=== PATIENT | female | born 1990 | race Caucasian/White ===

== ENCOUNTER → 2016-10-16 | Outpatient (CLI) | payer MEDICAID ==
[~2016-10-16] MED LIST: AMOXICOT500 MG PO; ETODOLAC400 MG PO; IRON TABLETS325 MG PO; MACROBID 100MG100 MG PO; NIFEDIPINE XL 330 MG PO; NOMEDS XX; PRENATAL PLUS1 TA1 PO; SEPTRA DS 800 M1 TAB PO; TUMS 400MG TAB400 MG PO
--- NOTE | 2016-10-17 16:30 | RADIOLOGY REPORT PS360 ---
US TRANSVAGINAL PREG ORDERING PHYSICIAN : Miller Jain MD PATIENT AGE: 26 years GENDER: Female INDICATION: DATES 8 weeks early OB to evaluate for date/age TECHNIQUE: Transvaginal pelvic ultrasound COMPARISON: No relevant studies FINDINGS There is a single viable uterine gestation Long closed cervix measuring nearly 6 cm length Average ultrasound age 7 weeks 0 days with today's information. Gestational age 8 weeks 2 days based on LMP 08/19/2016. Mean sac size is 2.02 cm = 6 weeks 4 days. [place]-rump length equal 1.11 cm = 7 weeks 2 days. Yolk sac measures 0.49 cm. Heart rate 153 BPM.. Amnionic chorion are identified. Cardiac activity identified. Small follicles throughout right and left ovary Right ovary 4.1 cm length x 1.6 cm x 2.2 cm. Left ovary 3.5 cm length on my measurement X x 2.1 cm x 1.8 cm. . The largest cyst is seen at the left ovary posteriorly measuring up to 1.4 cm.. Nonspecific. No fluid in cul-de-sac. ...... IMPRESSION: Single viable early intrauterine gestation. 7 weeks 0 days Average Ultrasound Age With CRL = 7 weeks 2 days
== END ==
LOC: RAD 14:58
DX: O26.841 Uterine size-date discrepancy, first trimester (principal)

== ENCOUNTER 2017-05-21 19:42 | Inpatient (IN) | payer MEDICAID ==
[~2017-05-21] VITALS: Ht 162.6 cm; Wt 64.0 kg
[~2017-05-21 19:42] MED LIST changes: +FLINTSTONES1 EACH PO
[2017-05-21 21:23] VITALS: BP 126/69
[2017-05-21 22:31] LABS: LYMPH # 1.7 K/mm3 (0.7-4.5); LYMPH % 20.2 % (10-50.0)
[2017-05-21 22:33] LABS: HEMOGLOBIN 10.4 g/dL (12.2-16.2)
[2017-05-22 03:32] LABS: ABO BLOOD TYPE A; RH BLOOD TYPE POSITIVE
--- NOTE | 2017-05-22 07:59 | LABOR NOTE ---
Laboring Subjective Subjective Date 05/22/17 Time 0757 Subjective: Pt is having regular contractions Laboring Objective Objective NST: Reactive Contractions: q 4-5 minutes Cervical dilation: 5-6 Effacement: 75% Station: -2 Membranes are: Artificially ruptured (with clear fluid) Fetus monitoring? Yes Type: External Laboring Assessment Assessment Progressing? Yes Cephalopelvic disproportion? No Problem List: 1. Normal delivery at term Laboring Plan Plan Anethesia for epidural? Yes Continue to labor down? Yes Plan for ? No Continue to monitor? Yes Start pushing? No at 0758
[2017-05-22 08:22] VITALS: BP 123/64
[2017-05-22 08:29] LABS: URINE BILIRUBIN - DIPSTICK NEGATIVE (NEG); URINE BLOOD TRACE-LYSED (NEG)
[2017-05-22 08:37] LABS: URINE SQUAMOUS CELLS OCC #/hpf (0-5)
--- NOTE | 2017-05-22 10:13 | LABOR NOTE ---
Laboring Subjective Subjective Date 05/22/17 Time 1012 Subjective: Pt is having regular contractions Laboring Objective Objective NST: Reactive Contractions: q 2-3 minutes Cervical dilation: 9 (ant lip) Effacement: 100% Station: +2 Membranes are: Artificially ruptured Fetus monitoring? Yes Type: External Laboring Assessment Assessment Progressing? Yes Cephalopelvic disproportion? No Problem List: 1. Normal delivery at term Laboring Plan Plan Anethesia for epidural? Yes Continue to labor down? Yes Plan for ? No Continue to monitor? Yes Start pushing? Yes at 1013
--- NOTE | 2017-05-22 10:38 | Delivery Note ---
Delivery note Delivery date: 05/22/17 Delivery time: 1025 Anesthesia: Epidural, Kit Billingsley Was labor medically induced? No Gestational age in weeks: 38 weeks Days: 1 day Delivery prior to 39 weeks? Yes Justification for delivery: Active labor Sex: female score at one minute: 8 at 5 minutes: 9 Type of suction: bulb AF: Clear fluid LAC or MLE: LAC (none) Delivery procedure: Normal Delivery Delivery of placenta: manual Clinical note She is a 26-year-old 7 now para 5 aborta 2 who was 38 weeks gestational age. She arrived in the evening of May 21, 2017 having regular contractions. She change her cervix from 2-5 cm. She was observed overnight and progressed to 5-6 cm. As result of that she had her membranes ruptured. Under labor epidural she progressed to full dilation and delivered spontaneously a liveborn female child at 10:25 AM on the morning of May 22, 2017. Undelivered the head the anterior shoulder rapidly delivered followed by the rest of the infant's body atraumatically. The baby cried spontaneously. The oropharynx and nasal fracture bulb suction. We allowed the cord to continue pulsating for approximately 45 seconds and then doubly clamped cord. The baby was then placed on the mother's abdomen for further care. Nurses assigned Apgars of 8 at 1 minute and 9 at 5 minutes. Using gentle traction on the cord the placenta did not want to release itself so using my hand I was able to completely deliver the placenta intact. It had a normal three-vessel cord. There were no perineal or vaginal lacerations. She has a positive blood, she is rubella immune and was group B streptococcus negative. She plans to breast-feed. Her marketing assistant manager Dr. Toscano. Estimated blood loss was 400 mL. at 1038
[2017-05-22 20:36] VITALS: BP 118/77
[2017-05-23 06:57] LABS: HEMOGLOBIN 8.6 g/dL (12.2-16.2)
[2017-05-23] MEDS ORDERED: MOTRIN 400MG.400 MG PO (08:37)
[2017-05-23 08:48] VITALS: BP 122/81
--- NOTE | 2017-05-23 10:18 | ACUTE CARE PROGRESS NOTE (QUA) ---
Progress Notes Subjective Date 05/23/17 Time 1017 Note She is doing very well this morning. She would like to go home. She is eating and drinking and ambulating. She is breast-feeding. Her lochia is normal. Patient/family reports: feeling better, no complaints Objective Findings Last VS-Temp:97.6 B/P:122/81 Pulse:60 Resp:18 SaO2: Last weight lbs:141 oz:0 [id number].957 Method:Floor Scales Laboratory Tests 05/23/17 0615: Hgb 8.6 L, Hct 25.9 L Exam General appearance: normal appearance, alert, awake, no acute distress Reviewed: vital signs, lab results Assessment/Plan Problem List 1. Normal delivery at term Patient condition Improving, Stable Plan: continue current care, initiate discharge plan This inpt stay is expected to cross 2 MNs from start of care No Comments: She is doing very well and she would like to go home. We will plan to discharge her home today. at 1018
--- NOTE | 2017-05-23 10:21 | Discharge Summary ---
Discharge Summary Admission date: 05/21/17 Discharge date: 05/23/17 Discharge diagnoses: Term , maternal anemia, spontaneous vaginal delivery Clinical note: She is a 26-year-old 7 now para 5 aborta 2 who is 38 weeks gestational age. She came in having a few contractions and was found to be 2 cm dilated. She was observed for couple of hours and progressed to 5 cm. As result of that we admitted her for delivery. Course in hospital: She was observed overnight and change from 2-6 cm. She will had her membranes ruptured and progressed to full dilation. She delivered spontaneously a liveborn female child at 10:25 AM on the morning of May 22, 2017. The baby weighed 6 lbs. 6 oz. was 19 inches long and had Apgars of 8 at 1 minute and 9 at 5 minutes. She has done well and has remained afebrile throughout her hospitalization. She is eating and drinking and ambulating. She is breast- feeding. She has a positive blood, she is rubella immune and was group B streptococcus negative. She is anemic and will take iron and vitamins. Laboratory Tests 05/23/17 0615: Hgb 8.6 L, Hct 25.9 L 05/22/17 1015: Cord Blood pH 7.31 L 05/22/17 0745: Urine Color YELLOW, Urine Appearance SL CLOUDY, Urine pH 7.0, Ur Specific [place] 1.015, Urine Protein NEGATIVE, Urine Ketones NEGATIVE, Urine Blood TRACE -LYSED, Urine Nitrate NEGATIVE, Urine Bilirubin NEGATIVE, Urine Urobilinogen 1.0 , Ur Leukocyte Esterase NEGATIVE, Urine RBC OCC, Urine WBC OCC, Ur Squamous Epith Cells OCC, Calcium Oxalate Crystal OCC, Urine Bacteria 1+, Urine Mucus 1+, Urine Glucose NEGATIVE 05/21/17 2218: MCH 31.0 05/21/17 2218: WBC 8.4, RBC 3.37 L, Hgb 10.4 L, Hct 30.7 L, MCV 91.0, RDW 14.3, Plt Count 184, MPV 9.8, Gran % 74.3, Gran # 6.3, Lymphocytes % 20.2, Monocytes % 4.6, Eosinophils % 0.7, Basophils % 0.2, Lymphocytes # 1.7, Monocytes # 0.4, Eosinophils # 0.1, Basophils # 0.0, PUBS MCHC 34.1, Antibody Screen NEGATIVE, Miscellaneous Test POSITIVE Plans for ongoing care: She is discharged home to follow-up with me in approximately 2 weeks' time. Discharge medications She will continue with her vitamins and iron. She was given a prescription for Motrin 400 mg, 40 tablets. DC/follow-up instructions She was given the usual instructions with respect to limiting her activity, driving and sexual activity. Condition at discharge Stable and improved. at 1020
== END 2017-05-23 14:45 | disposition home or self-care (01) | DRG 775 ==
LOC: OBOUT 19:42 → OB 19:42 → OBOUT 22:02 → OB 22:02
PROVIDERS: Nurse Practitioner Obstetrics & Gynecology
PROC: 10E0XZZ Delivery of Products of Conception, External Approach (ICD-10-PCS; principal; 2017-05-22)
DX: O80 Encounter for full-term uncomplicated delivery (principal); Z37.0 Single live birth; Z3A.38 38 weeks gestation of pregnancy

== ENCOUNTER 2017-07-04 07:25 | Day surgery (SDC) | payer MEDICAID ==
[~2017-07-04] VITALS: Ht 165.1 cm; Wt 54.4 kg
[~2017-07-04 07:25] MED LIST changes: +MOTRIN 400MG.400 MG PO
[2017-07-04 08:12] LABS: LYMPH # 2.6 K/mm3 (0.7-4.5); LYMPH % 35.2 % (10-50.0)
[2017-07-04 08:18] LABS: HEMOGLOBIN 12.5 g/dL (12.2-16.2)
--- NOTE | 2017-07-04 09:21 | Operative Note ---
Procedure/Operative Record Procedure Date of procedure: 07/04/17 Pre-Op Dx: Desire for sterilization Post-Op Dx: Desire for sterilization Procedure performed: Laparoscopic bilateral salpingectomy Surgeon: Dr. Miller Jain Moderate Needs Teacher(s): None Anesthesia: Man Eneida EBL (ml): 50 Clinical note: She is a 26-year-old 7 now para 5 aborta 2 who was about 6 weeks . She expressed desire for sterilization. The risks and benefits as well as the irreversibility of bilateral salpingectomy were discussed with the patient prior to surgery. Operative findings: She had a normal-appearing anteverted uterus. The tubes were followed to their fimbriated end appeared normal. The ovaries appeared normal as well. The pelvis. Normal. The appendix was visualized and appeared normal. Operative note: She was taken to the operating room where general anesthesia was found be adequate. She was prepped and draped in the normal sterile fashion in the semi- lithotomy position. A weighted speculum was placed in the vagina and the anterior lip of the cervix was grasped with a tenaculum. A Keke uterine minute there was placed into the uterine cavity and the balloon was insufflated. I changed gloves and then injected 10 mL of 0.5 percent ropivacaine around the umbilicus. I made a small incision within the umbilicus and inserted a Veress needle into the abdominal cavity. The abdominal cavity was then insufflated with carbon oxide gas to a pressure of 20 mmHg meters of mercury. I then inserted a 5 mm trocar under direct vision. I injected through and through the pubic hairline , made a small incision here and inserted an 8 mm trocar under direct vision. I identified the inferior epigastric arteries, went lateral to these and injected through and through. I made a small incision and inserted a 5 mm trocar under direct vision. The RIGHT tube was then cauterized close to the cornua of the uterus. I cauterized along approximately 1 cm area of the tube. I then cut through the tube.. Starting at the distal end of the tube I then cut along the meso salpinx joining up with where I cut across the tube near the cornua. The tube was then removed through the 8 mm port. This was similarly performed on the patient's LEFT side. We then injected 20 mL of 0.5 percent ropivacaine into the pelvis. We 'll let the gas out of the abdomen to assure hemostasis. All the sites were hemostatic. Photographs were taken. The secondary trochars were then removed under direct vision. The sites were hemostatic. The camera and primary trocar removed together. The 8 mm trocar site was closed deeply with 2-0 Vicryl suture followed by subcuticular 4-0 Monocryl suture. The 5 mm trocar sites were closed with subcu care 4-0 Monocryl suture. Sterile dressings were applied. The patient tolerated the procedure well and was taken to the recovery room in excellent condition. All sponge instrument and needle counts were correct. The estimated blood loss was less than 25 mL. Conplications: None Specimens: Bilateral fallopian tubes at 0917
--- NOTE | 2017-07-04 09:28 | Anesthesia Record ---
Anesthesia Record Part I Total IV fluids: 350 EBL (ml): 25 Urine Output: 0 B/P: 138/89 % SaO2: 100 Pulse: 64 Resps: 16 Temp: 97.3 Patient is: Drowsy, Stable Stable to PACU at: 0924 at 0953
--- NOTE | 2017-07-04 09:28 | Anesthesia Record ---
Anesthesia Record Part II Discharge time: 953 Destination: Same day surgery PACU nurse assessment review? Yes Patient is: Stable Anesthesia complications? No at 5440
[2017-07-04 11:26] VITALS: BP 101/73
== END 2017-07-04 10:40 | disposition home or self-care (01) ==
LOC: SDC 07:25
PROVIDERS: Nurse Practitioner Obstetrics & Gynecology
PROC: 0UT74ZZ Resection of Bilateral Fallopian Tubes, Percutaneous Endoscopic Approach (ICD-10-PCS; principal; 2017-07-04 08:45)
DX: Z30.2 Encounter for sterilization (principal)
CPT/HCPCS: J0131; J2405; J2710